=== PATIENT | female | born 1950 | race Caucasian/White ===

== ENCOUNTER 2020-04-12 11:06 | Outpatient (CLI) | payer MEDICARE ==
[2020-04-12] MEDS ORDERED: UMEC62.5 INH (11:48)
[2020-04-12] MEDS ORDERED: OXYC-302 PO (11:48)
[2020-04-12] MEDS ORDERED: BUDE10.2 INH (11:48)
[2020-04-12 13:19] LABS: BASOPHILS # (AUTO) 0.03 x10^3/uL (0-0.1); BASOPHILS % (AUTO) 0 % (0-1); EOSINOPHILS # (AUTO) 0.21 x10^3/uL (0-0.4); EOSINOPHILS % (AUTO) 3 % (1-7); LYMPHOCYTES # (AUTO) 1.87 x10^3/uL (1-3.4); LYMPHOCYTES % (AUTO) 23 % (22-44); MD NO; MEAN CORPUSCULAR HEMOGLOBIN 32.3 pg (27.0-34.8); MEAN CORPUSCULAR HGB CONC 32.8 g/dL (32.4-35.8); MEAN CORPUSCULAR VOLUME 98.4 fL (80-100); MEAN PLATELET VOLUME 8.2 fL (7.4-10.4); MONOCYTES # (AUTO) 0.84 x10^3/uL (0.2-0.8); MONOCYTES % (AUTO) 10 % (2-9); NEUTROPHILS # (AUTO) 5.11 x10^3/uL (1.8-6.8); NEUTROPHILS % (AUTO) 63 % (42-75); PLATELET COUNT 263 x10^3/uL (130-400); RED BLOOD COUNT 5.44 x10^6/uL (3.82-5.3); RED CELL DISTRIBUTION WIDTH 14.8 % (9.6-15.2)
[2020-04-12 13:28] LABS: MICROSCOPIC INDICATED
[2020-04-12 13:31] LABS: ALANINE AMINOTRANSFERASE 21 U/L (12-78); ALBUMIN 3.8 g/dL (3.4-5.0); ANION GAP 6 mmol/L (5-15); CALCIUM 8.7 mg/dL (8.5-10.1); CHLORIDE 100 mmol/L (98-107); CREATININE 0.81 mg/dL (0.55-1.02)
[2020-04-12 13:33] LABS: ALKALINE PHOSPHATASE 112 U/L (45-117); BILIRUBIN,TOTAL 0.4 mg/dL (0.2-1.0); TOTAL PROTEIN 7.5 g/dL (6.4-8.2)
== END 2020-04-12 23:59 | disposition home or self-care (01) ==
LOC: STAR 11:06
PROVIDERS: ATTEND Orthopaedic Surgery
DX: Z01.818 Encounter for other preprocedural examination (principal); Z11.59 Encounter for screening for other viral diseases; M16.11 Unilateral primary osteoarthritis, right hip; M25.551 Pain in right hip
CPT/HCPCS: 36415; 80053; 81001; 85025; 87081; 87806; 93005; U0001; G0475

== ENCOUNTER 2020-04-16 08:16 | Observation (INO) | payer MEDICARE, OTHER ==
[~2020-04-16] VITALS: Ht 149.9 cm; Wt 97.8 kg
[~2020-04-16 08:16] MED LIST: BACITRACIN 50,000 UNIT ONE; BUDE10.2 INH; KETOROLAC 60 MG/2 ML ONE; OXYC-302 PO; ROPIvacaine/PF 0.2%, 20 ML ONE; UMEC62.5 INH
[2020-04-16] MEDS ORDERED: LACTATED RINGERS 1,000 ML IV SCH (10:35)
[2020-04-16] MEDS ORDERED: VANCOMYCIN PMX 1GM/200ML 200 ML IV STA (10:35)
[2020-04-16] MEDS ORDERED: CHLORHEXIDINE 15 ML UDC MM STA (10:36)
[2020-04-16] MEDS ORDERED: LIDOCAINE-MPF 2% ,5ML ONE (12:16)
[2020-04-16] MEDS ORDERED: GLYCOPYRROLATE 0.2MG/1ML, 5ML ONE (12:16)
[2020-04-16] MEDS ORDERED: PROPOFOL 10 MG/ML, 20ML ONE (12:16)
[2020-04-16] MEDS ORDERED: ROCURONIUM 10MG/ML,5ML ONE (12:16)
[2020-04-16] MEDS ORDERED: DEXAMETHASONE 4 MG/ML, 1ML ONE (12:16)
[2020-04-16] MEDS ORDERED: FENTANYL PF 250 MCG/5ML ONE (12:17)
[2020-04-16] MEDS ORDERED: MIDAZOLAM 1 MG/ML, 2ML ONE (12:17)
[2020-04-16] MEDS ORDERED: LABETALOL 5MG/ML, 20ML IV PRN (12:30)
[2020-04-16] MEDS ORDERED: HYDROcodone/APAP 7.5-325MG/15ML UDC PO PRN (12:30)
[2020-04-16] MEDS ORDERED: HYDROmorphone 1 MG/ML, 1ML INJ IVPush PRN (12:30)
[2020-04-16] MEDS ORDERED: MEPERIDINE/PF 25MG/0.5ML IVPush PRN (12:30)
[2020-04-16] MEDS ORDERED: ALBUTEROL/IPRATROPIUM 2.5MG/0.5MG, 3 ML NPPB PRN (12:30)
[2020-04-16] MEDS ORDERED: DIPHENHYDRAMINE 50 MG/ML, 1ML IVPush PRN (12:30)
[2020-04-16] MEDS ORDERED: METOCLOPRAMIDE 5 MG/ML, 2ML IVPush PRN (12:30)
[2020-04-16] MEDS ORDERED: hydrALAzine 20 MG/ML, 1ML IV PRN (12:30)
[2020-04-16] MEDS ORDERED: ONDANSETRON 2MG/ML, 2ML IVPush PRN ×2 (12:30→14:00)
[2020-04-16] MEDS ORDERED: MIDAZOLAM 1 MG/ML, 2ML IV PRN (12:30)
[2020-04-16] MEDS ORDERED: METHOCARBAMOL 1,000 MG in DEXTROSE 5% 100 ML IV PRN (12:30)
[2020-04-16] MEDS ORDERED: EPHEDRINE 50 MG/ML, 1ML IM PRN (12:30)
[2020-04-16] MEDS ORDERED: HALOPERIDOL 5 MG/ML IV PRN (12:30)
[2020-04-16] MEDS ORDERED: EPHEDRINE 50 MG/ML, 1ML IVPush PRN (12:30)
[2020-04-16] MEDS ORDERED: LIDOCAINE 1%, 20ML ONE (12:58)
[2020-04-16] MEDS ORDERED: TRANEXAMIC ACID 100 MG/ML, 10ML ONE (13:00)
[2020-04-16] MEDS ORDERED: morphine SULFATE/PF 0.5 MG/ML, 10ML ONE (13:00)
[2020-04-16] MEDS ORDERED: CEFAZOLIN 1,000 MG ONE (13:31)
[2020-04-16] MEDS: D5%-0.45% NACL 1,000 ML IV SCH ×3 (13:39→23:39)
[2020-04-16] MEDS ORDERED: ZOLPIDEM 5MG TABLET PO PRN (14:00)
[2020-04-16] MEDS ORDERED: morphine SULFATE 10 MG/ML, 1ML IVPush PRN (14:00)
[2020-04-16] MEDS ORDERED: LORazepam 2 MG/ML, 1ML IVPush PRN (14:00)
[2020-04-16] MEDS ORDERED: ACETAMINOPHEN 325 MG TABLET PO PRN (14:00)
[2020-04-16] MEDS ORDERED: DIPHENHYDRAMINE 25 MG CAPSULE PO PRN (14:00)
[2020-04-16] MEDS ORDERED: FENTANYL PF 100 MCG/2ML ONE ×2 (16:03→16:30)
[2020-04-16] MEDS: FENTANYL PF 100 MCG/2ML IV PRN ×5 (16:10→16:51)
[2020-04-16] MEDS ORDERED: OXYcodone 5 MG/5 ML ORAL.SOL UDC ONE ×2 (16:24→17:05)
[2020-04-16] MEDS: OXYcodone 5 MG/5 ML ORAL.SOL UDC PO PRN ×2 (16:25→17:06)
[2020-04-16] MEDS ORDERED: TRANEXAMIC ACID 1,000 MG in SODIUM CHLORIDE 0.9% 100 ML IV ONE ×2 (17:36→20:00)
[2020-04-16 20:17] VITALS: BP 127/90
[2020-04-16] MEDS: CEFAZOLIN PMX 2GM/50ML 50 ML IVPB SCH (21:00)
[2020-04-16] MEDS: OXYcodone/APAP 5/325MG TABLET PO PRN (21:04)
[2020-04-17 00:53] VITALS: BP 115/65
[2020-04-17] MEDS: D5%-0.45% NACL 1,000 ML IV SCH ×4 (04:31→19:39)
[2020-04-17] MEDS: OXYcodone/APAP 5/325MG TABLET PO PRN ×2 (04:34→20:01)
[2020-04-17] MEDS: CEFAZOLIN PMX 2GM/50ML 50 ML IVPB SCH ×2 (04:34→13:21)
[2020-04-17 04:53] VITALS: BP 103/60
[2020-04-17 07:19] VITALS: BP 113/60
[2020-04-17] MEDS: OXYcodone/APAP 7.5/325MG TABLET PO PRN ×2 (08:14→13:53)
[2020-04-17] MEDS ORDERED: VANCOMYCIN PMX 1GM/200ML 200 ML IVPB ONE ×2 (09:00→13:00)
[2020-04-17 13:18] VITALS: BP 106/58
[2020-04-17] MEDS ORDERED: ASPIRIN 325 MG TABLET EC PO SCH (17:00)
[2020-04-17 20:07] VITALS: BP 122/76
[2020-04-17] MEDS ORDERED: DOCUSATE 100 MG CAPSULE PO SCH (21:00)
[2020-04-18] MEDS: D5%-0.45% NACL 1,000 ML IV SCH ×2 (00:39→05:39)
[2020-04-18] MEDS: OXYcodone/APAP 5/325MG TABLET PO PRN ×2 (02:28→06:21)
[2020-04-18 02:35] VITALS: BP 111/71
[2020-04-18 05:58] VITALS: BP 113/70
== END 2020-04-18 07:05 | disposition home or self-care (01) ==
LOC: INTOOBSV 10:22 → ORIP 10:22 → EDSTATUS 12:30 → 4NE 17:29
PROVIDERS: ADMIT Orthopaedic Surgery; ATTEND Orthopaedic Surgery
DX: M16.11 Unilateral primary osteoarthritis, right hip (principal); M81.0 Age-related osteoporosis without current pathological fracture; J44.9 Chronic obstructive pulmonary disease, unspecified; E66.9 Obesity, unspecified; F17.200 Nicotine dependence, unspecified, uncomplicated; Z96.642 Presence of left artificial hip joint; Z79.899 Other long term (current) drug therapy
CPT/HCPCS: 27130; 36415; 73501; 85018; 96365; 96366; 96367; 97110; 97161; 97165; C1713; C1776; G0378; J0690; J1100; J1885; J2250; J2274; J2704; J2795; J3010; J3370; J3490